=== PATIENT | male | born 1965 | race Caucasian/White ===

== ENCOUNTER → 2019-11-08 | Outpatient (CLI) | payer MEDICARE ==
[2019-11-08 15:16] LABS: African American GFR (CKD) >90 (>60 ml/min/1.73 sqM); Blood Urea Nitrogen 17 mg/dL (9-20); Non-African American GFR(CKD) >90 (>60 ml/min/1.73 sqM)
--- NOTE | 2019-11-08 16:35 | CT ---
EXAMINATION TYPE: CT urogram wo/w con DATE OF EXAM: 11/08/2019 COMPARISON: None HISTORY: Microscopic hematuria. CT DLP: 11,465.5 mGycm CONTRAST: Performed and without and with IV Contrast, patient injected with 100ml mL of Isovue 300. CT Urography was performed with unenhanced followed by enhanced images of the kidneys, ureters and ur inary bladder. Delayed images were obtained. 3d reconstruction was performed at a separate work sta tion. FINDINGS: KIDNEYS/BLADDER: No hydronephrosis. No nephrolithiasis. No distinct renal mass. Urinary bladder gr ossly unremarkable. LUNG BASES-: No visible nodule. No infiltrate. LIVER/GB: Calcified gallstones are noted. No space occupying hepatic lesion. Biliary tree is of jesus l caliber. PANCREAS: No inflammation. No distinct mass. SPLEEN: No splenic enlargement. No lesion seen. ADRENALS: No nodule. No thickening. BOWEL: Normal appendix. Normal bowel caliber. No inflammation. Gastric banding device is in place. GENITAL ORGANS: No gross abnormality. LYMPH NODES: No greater than 1cm abdominal or pelvic lymph nodes are appreciated. AORTA: No significant abnormality. OSSEOUS STRUCTURES: No significant abnormality is seen. OTHER: No significant additional abnormality is seen. IMPRESSION: 1. No distinct abnormality to account for the patient's symptoms of hematuria. Correlate clinically. 2. Cholelithiasis.
== END | disposition home or self-care (01) ==
LOC: RADCTMAIN 14:26
PROVIDERS: ATTEND Urology
DX: K80.20 Calculus of gallbladder without cholecystitis without obstruction (principal); R31.1 Benign essential microscopic hematuria
CPT/HCPCS: 82565; 84520; 74178; 36415; 74400; Q9967

== ENCOUNTER 2019-11-30 10:54 | Day surgery (SDC) | payer MEDICARE ==
--- NOTE | 2019-11-28 15:42 | P.HPIHPCON ---
History of Present Illness H&P Date: 11/30/19 Chief Complaint: right scrotal mass/micro hematuria Mr. Garnett is 54 yo male with hx of 3 cm sinus tract and induration along his scrotum. He is symptomatic from it and indicated he has noticed drainage. I discussed with him the option of observation vs excision. He would like to proceed with excision. I discussed the risk of bleeding, infection and injury to testicle. He also has lesion along his thigh, which he would be excised by Dr Howard. He also has hx of microscopic hematuria. We will do a Cystoscopy at the same time. Consent for Procedure: I have explained the operation/procedure to the patient, including the risks, benefits, side effects, alternative therapies (including not receiving the proposed treatment or service), the likelihood of the patient achieving his/her goals, and potential recuperation problems for the procedure/sedation/analgesia, as well as any blood products, if indicated. I also explained to the patient the risks, benefits and side effects of the alternatives, as well as the risks related to not receiving the proposed procedure, care, treatment, or services. Surgical - Exam - General well developed, well nourished, no distress - Respiratory normal expansion, normal respiratory effort - Psychiatric oriented to time, oriented to person, oriented to place Assessment and Plan Assessment: 54 yo male with hx of right scrotal lesion and microscopic hematuria -OR for excision of right scrotal mass and cystoscopy. This will be a dual case with Dr Howard
[2019-11-29 11:25] VITALS: BMI 48.4
[~2019-11-30 10:54] MED LIST: DEXAMETHASONE SOD PHOSPHATE 10 MG/ML 1 ML VIAL IV ONE; HYDROmorphone 0.5 MG/0.5 ML SYRINGE IVP PRN; LACTATED RINGERS 1,000 ML IV SCH; LIDOCAINE 1% (10MG/ML) FOR IV START INTRADERMA PRN; MIDAZOLAM 2 MG/2 ML VIAL IV PRN; ONDANSETRON 4 MG/2 ML VIAL IVP ONE; ceFAZolin 3 GM in SODIUM CHLORIDE 0.9% 100 ML IVPB ONE
[2019-11-30 11:30] LABS: Glucose,Whole Blood 143 mg/dL (75-99)
[2019-11-30] MEDS ORDERED: fentaNYL (PF) 50 MCG/ML 2 ML AMP IV ONE (11:57)
[2019-11-30] MEDS ORDERED: NEOSTIGMINE 1 MG/ML 10 ML VIAL ONE (11:59)
[2019-11-30] MEDS ORDERED: GLYCOPYRROLATE 0.2 MG/ML 2 ML VIAL ONE (11:59)
[2019-11-30] MEDS ORDERED: ROCURONIUM BROMIDE 10 MG/ML 5 ML VIAL IV ONE (11:59)
[2019-11-30] MEDS ORDERED: PROPOFOL 10 MG/ML 20 ML VIAL IV ONE (11:59)
[2019-11-30] MEDS ORDERED: fentaNYL (PF) 50 MCG/ML 2 ML AMP ONE (11:59)
[2019-11-30] MEDS ORDERED: MIDAZOLAM 2 MG/2 ML VIAL ONE (11:59)
[2019-11-30] MEDS ORDERED: LIDOCAINE 1% INJ 10MG/ML (20 ML MDV) ONE (11:59)
[2019-11-30] MEDS ORDERED: PHENYLEPHRINE-0.9% NACL SYG 1 MG/10 ML SYRINGE ONE (11:59)
[2019-11-30] MEDS ORDERED: SUCCINYLCHOLINE CHLORIDE VIAL 200 MG/10 ML VIAL IV ONE (11:59)
[2019-11-30] MEDS ORDERED: LIDOCAINE 1%-EPI 1:100,000 20 ML VIAL SQ ONE (12:09)
[2019-11-30] MEDS ORDERED: BUPIVACAINE (PF) 0.25% 30 ML VIAL SQ ONE (12:09)
[2019-11-30] MEDS ORDERED: LACTATED RINGERS 1,000 ML IV ONE (12:55)
--- NOTE | 2019-11-30 13:25 | P.OP ---
Date of Procedure: 11/30/19 Preoperative Diagnosis: Abscess/Cyst of right thigh and scrotum Hidradenitis supporativa of right thigh Postoperative Diagnosis: Same Procedure(s) Performed: Excision of hidradenitis suppurativa Anesthesia: MAGALY Surgeon: Frederic Howard Estimated Blood Loss (ml): 10 Pathology: other Condition: stable Disposition: PACU Indications for Procedure: Chronic infection cyst and hidradenitis suppurativa of right thigh Operative Findings: hydradenitis suppurativa Description of Procedure: Patient is brought back to the operative suite placed in the dorsolithotomy position underwent general endotracheal anesthesia per Department of anesthesia timeout performed correct patient correct procedure correct site was verified. Attention was turned to the right thigh will there was a large area of induration and what appeared to be chronic hydradenitis suppurativa. A large elliptical incision was made 12 cm x 4 cm. The entire area of induration was excised down to healthy subcutaneous tissues. Hemostasis was achieved. The wou nd was then closed with 3-0 subdermal Vicryl followed by 2-0 nylon interrupted horizontal mattress sutures. Patient tolerated this well. Dressing was applied. Please see urology note for scrotal cyst excision and cystoscopy. Plan - Discharge Summary Discharge Rx Participant: No New Discharge Prescriptions: New oxyCODONE HCL/ACETAMINOPHEN [Percocet 10-325 mg] 1 tab PO Q4HR PRN 3 Days #18 tab PRN Reason: Pain Sulfamethox-Tmp 800-160Mg [Bactrim DS 800-160 mg] 1 tab PO Q12HR 10 Days #20 tab No Action Multivitamins, Thera [Multivitamin (formulary)] 1 tab PO DAILY metFORMIN HCL [Glucophage] 1,000 mg PO DAILY Metoprolol Succinate (ER) [Toprol Xl] 25 mg PO DAILY Lisinopril [Zestril] 5 mg PO DAILY Atorvastatin [Lipitor] 20 mg PO DAILY Meloxicam [Mobic] 7.5 mg PO DAILY Aspirin [Adult Low Dose Aspirin EC] 81 mg PO DAILY Stool Softner 1 tab PO DAILY Discharge Medication List Aspirin [Adult Low Dose Aspirin EC] 81 mg PO DAILY 11/29/19 [History] Atorvastatin [Lipitor] 20 mg PO DAILY 11/29/19 [History] Lisinopril [Zestril] 5 mg PO DAILY 11/29/19 [History] Meloxicam [Mobic] 7.5 mg PO DAILY 11/29/19 [History] Metoprolol Succinate (ER) [Toprol Xl] 25 mg PO DAILY 11/29/19 [History] Multivitamins, Thera [Multivitamin (formulary)] 1 tab PO DAILY 11/29/19 [History] Stool Softner 1 tab PO DAILY 11/29/19 [History] metFORMIN HCL [Glucophage] 1,000 mg PO DAILY 11/29/19 [History] Sulfamethox-Tmp 800-160Mg [Bactrim DS 800-160 mg] 1 tab PO Q12HR 10 Days #20 tab 11/30/19 [Rx] oxyCODONE HCL/ACETAMINOPHEN [Percocet 10-325 mg] 1 tab PO Q4HR PRN 3 Days #18 tab 11/30/19 [Rx] Follow up Appointment(s)/Referral(s): Frederic Howard DO [Doctor of Osteopathic Medicine] - 2 Weeks Ben Canada MD [STAFF PHYSICIAN] - 2 Weeks Activity/Diet/Wound Care/Special Instructions: Dressing can be removed on thigh tomorrow. Patient may shower and pat dry tomorrow. No bathing or submerging wound underwater. Keep wound clean and dry with dressing changes as needed. Discharge Disposition: HOME SELF-CARE
--- NOTE | 2019-11-30 14:45 | P.OP ---
Date of Procedure: 11/30/19 Preoperative Diagnosis: Right scrotal mass/Microscopic hematuria Postoperative Diagnosis: same Procedure(s) Performed: excision of scrotal mass (3.0 cm), Cystoscopy Implants: none Anesthesia: MAGALY Surgeon: Ben Canada Estimated Blood Loss (ml): 10 Pathology: other (right scrotal mass/tract) Condition: stable Disposition: PACU Indications for Procedure: Mr. Garnett is 54 yo male with hx ocm sinus tract and induration along his scrotum, suspicious for hidradenitis.. He is symptomatic from it and indicated he has noticed drainage. I discussed with him the option of observation vs excision. He would like to proceed with excision. I discussed the risk of bleeding, infection and injury to testicle. He also has lesion along his thigh, which he would be excised by Dr Howard. He also has hx of microscopic hematuria. We will do a Cystoscopy at the same time. Operative Findings: 4 cm scrotal mass and sinus tract along the scrotum on right, suspicious for hidradenitis. Description of Procedure: The patient was brought to the operating room, general anesthesia was induced. He was placed in a dorsal lithotomy position. Dr. howard performed excision of the lesion along the right thigh, please see his op note for his portion of the dictation. There was an indurated area of induration along the right hemiscrotum and a tract that extended to the perineum. the indurated are along the scrotum measured 4 cm. Approximately 4 cm incision was made along the right hemiscrotum along the indurated area. Using blunt dissection the scrotal mass was dissected free from the surrounding tissue caution was used to dissect the tunica vaginalis away from the area of excision. There was no entry into the tunica vaginalis during dissection. Once the scrotal lesion was freed up from all surrounding tissue it was excised. of note the scrotal lesion was very stuck to surrounding tissue and no clear plane was appreciated secondary to inflamation. The scrotal mass measured approximately 4 cm, and it was suspicious for hidradenitis. At this point a hemostat was inserted through the sinus tract along the perineum and extended into the area where the scrotal mass was excised. This sinus tract was excised and removed. Electrocautery was used to achieve hemostasis. Subcutaneous tissue was closed using 3-0 Vicryl. The skin was closed using a combination of 3-0 Vicryl and 4-0 Monocryl in interrupted fashion. 10 mL of local was injected. At this time attention was carried to the cystoscopy. The cystoscope and with 17 Fr sheath was inserted per urethra and advanced into the bladder. cystoscopy was performed which showed no suspicious lesions within the bladder. Of note the patient had a mildly enlarged prostate. The bladder was emptied at the end of the case. The patient tolerated procedure well and was taken to PACU in stable condition
[2019-11-30 14:46] VITALS: TEMP 97.3
[2019-11-30 14:51] LABS: Glucose,Whole Blood 149 mg/dL (75-99)
[2019-11-30 15:05] VITALS: RESP 16
[2019-11-30] MEDS ORDERED: oxyCODONE-APAP 10-325MG 1 EACH TAB PO PRN (15:46)
[2019-11-30 16:15] VITALS: BP 136/80; PULSE 85
== END 2019-11-30 16:30 | disposition home or self-care (01) ==
LOC: OR 10:54
PROVIDERS: ATTEND Student in an Organized Health Care Education/Training Program
DX: L72.0 Epidermal cyst (principal); L90.5 Scar conditions and fibrosis of skin; L08.89 Other specified local infections of the skin and subcutaneous tissue; L73.2 Hidradenitis suppurativa; R31.29 Other microscopic hematuria; N40.0 Benign prostatic hyperplasia without lower urinary tract symptoms; I25.2 Old myocardial infarction; M19.90 Unspecified osteoarthritis, unspecified site; E11.9 Type 2 diabetes mellitus without complications; I10 Essential (primary) hypertension; E78.00 Pure hypercholesterolemia, unspecified; N42.9 Disorder of prostate, unspecified; G47.30 Sleep apnea, unspecified; I25.10 Atherosclerotic heart disease of native coronary artery without angina pectoris; F17.210 Nicotine dependence, cigarettes, uncomplicated; E66.01 Morbid (severe) obesity due to excess calories; Z68.54 Body mass index [BMI] pediatric, 95th percentile for age to less than 120% of the 95th percentile for age; Z86.2 Personal history of diseases of the blood and blood-forming organs and certain disorders involving the immune mechanism; Z85.828 Personal history of other malignant neoplasm of skin; Z98.84 Bariatric surgery status; Z98.890 Other specified postprocedural states; Z79.899 Other long term (current) drug therapy; Z79.84 Long term (current) use of oral hypoglycemic drugs; Z79.52 Long term (current) use of systemic steroids; Z79.891 Long term (current) use of opiate analgesic; Z82.3 Family history of stroke; Z83.3 Family history of diabetes mellitus; Z82.49 Family history of ischemic heart disease and other diseases of the circulatory system; Z80.9 Family history of malignant neoplasm, unspecified
CPT/HCPCS: 88304; 11406; 11424; 52000; J2250; J0330; J1100; J2710; J0690; J2405; J2001; J3010; J2370; J2704

== ENCOUNTER → 2020-03-17 | Outpatient (CLI) | payer MEDICARE ==
[2020-03-17 12:33] LABS: Basophils # (A) 0.1 k/uL (0-0.2); Basophils % (A) 1 %; Eosinophils # (A) 0.2 k/uL (0-0.7); Eosinophils % (A) 2 %; HCT 50.6 % (39.0-53.0); HGB 15.9 gm/dL (13.0-17.5); Lymphocytes # (A) 3.1 k/uL (1.0-4.8); Lymphocytes % (A) 32 %; MCH 31.3 pg (25.0-35.0); MCHC 31.5 g/dL (31.0-37.0); MCV 99.5 fL (80.0-100.0); Mean Platelet Volume 8.3; Monocytes # (A) 0.5 k/uL (0-1.0); Monocytes % (A) 5 %; Neutrophils # (A) 5.6 k/uL (1.3-7.7); Neutrophils % (A) 58 %; Platelet Count 267 k/uL (150-450); RBC 5.08 m/uL (4.30-5.90); RDW 12.9 % (11.5-15.5); WBC 9.6 k/uL (3.8-10.6)
[2020-03-17 12:47] LABS: African American GFR (CKD) >90 (>60 ml/min/1.73 sqM); Anion Gap 5 mmol/L; Blood Urea Nitrogen 19 mg/dL (9-20); Calcium 9.3 mg/dL (8.4-10.2); Carbon Dioxide 31 mmol/L (22-30); Chloride 102 mmol/L (98-107); Glucose 232 mg/dL (74-99); Non-African American GFR(CKD) >90 (>60 ml/min/1.73 sqM); Sodium 138 mmol/L (137-145)
== END | disposition home or self-care (01) ==
LOC: LABPAT 11:19
PROVIDERS: ATTEND Urology
DX: Z01.818 Encounter for other preprocedural examination (principal); E11.9 Type 2 diabetes mellitus without complications; N50.89 Other specified disorders of the male genital organs
CPT/HCPCS: 36415; 80048; 85025

== ENCOUNTER 2020-03-21 11:57 | Day surgery (SDC) | payer MEDICARE ==
[2020-03-19 11:21] VITALS: BMI 48.4
--- NOTE | 2020-03-19 11:32 | P.HPIHPCON ---
History of Present Illness H&P Date: 03/21/20 Chief Complaint: hidradenitis Mr. Garnett is 54 yo male with hx of hidradenitis, he has hx of excision of hidradenitis, . Of note he has a new sinus tract and induration along his scrotum. He is symptomatic from it and indicated he has noticed drainage. I discussed with him the option of observation vs excision. He would like to proceed with excision. I discussed the risk of bleeding, infection and injury to testicle and potential of recurrence Consent for Procedure: I have explained the operation/procedure to the patient, including the risks, benefits, side effects, alternative therapies (including not receiving the proposed treatment or service), the likelihood of the patient achieving his/her goals, and potential recuperation problems for the procedure/sedation/analgesia, as well as any blood products, if indicated. I also explained to the patient the risks, benefits and side effects of the alternatives, as well as the risks related to not receiving the proposed procedure, care, treatment, or services. - Constitutional Constitutional: Denies chills, Denies fever - Cardiovascular Cardiovascular: Denies chest pain, Denies shortness of breath - Respiratory Respiratory: Denies cough, Denies 7 - Gastrointestinal Gastrointestinal: Denies abdominal pain, Denies diarrhea, Denies nausea, Denies vomiting Past Medical History Past Medical History: Cancer, Diabetes Mellitus, GERD/Reflux, Hyperlipidemia, Hypertension, Myocardial Infarction ([place]) Additional Past Medical History / Comment(s): basal cell skin cancer. gallstones. cyst rt thigh,rt scrotal mass Last Myocardial Infarction Date:: 2013 History of Any Multi-Drug Resistant Organisms: MRSA Date of last positivie culture/infection: 2013 MDRO Source:: rt elbow Past Surgical History: Bariatric Surgery, Heart Catheterization, Tonsillectomy Additional Past Surgical History / Comment(s): MOHS procedure, lap band placed and removed, colonoscopy with polyps repair of fissure Past Anesthesia/Blood Transfusion Reactions: No Reported Reaction Smoking Status: Current every day smoker - Past Family History Mother Family Medical History: Cancer Additional Family Medical History / Comment(s): skin cancer Sister(s) Family Medical History: Cancer Additional Family Medical History / Comment(s): "abdominal cancer" Medications and Allergies Home Medications Medication Instructions Recorded Confirmed Type Aspirin [Adult Low Dose Aspirin EC] 81 mg PO DAILY 11/29/19 03/19/20 History Atorvastatin [Lipitor] 40 mg PO DAILY 11/29/19 03/19/20 History Lisinopril [Zestril] 5 mg PO DAILY 11/29/19 03/19/20 History Meloxicam [Mobic] 7.5 mg PO DAILY 11/29/19 03/19/20 History Metoprolol Succinate (ER) [Toprol 25 mg PO DAILY 11/29/19 03/19/20 History Xl] Multivitamins, Thera [Multivitamin 1 tab PO DAILY 11/29/19 03/19/20 History (formulary)] Stool Softner 1 tab PO DAILY 11/29/19 03/19/20 History metFORMIN HCL [Glucophage] 1,000 mg PO DAILY 11/29/19 03/19/20 History oxyCODONE HCL/ACETAMINOPHEN 1 tab PO Q4HR PRN 3 Days #18 tab 11/30/19 03/19/20 Rx [Percocet 10-325 mg] Bumetanide [Bumex] 1 mg PO DAILY 03/19/20 03/19/20 History Omeprazole [PriLOSEC] 20 mg PO [id number]-[id number] 03/19/20 03/19/20 History Potassium Chloride [K-Tab ER] 10 meq PO DAILY 03/19/20 03/19/20 History Allergies Allergy/AdvReac Type Severity Reaction Status Date / Time No Known Allergies Allergy Verified 03/19/20 11:10 Surgical - Exam - General well developed, well nourished, no distress - Respiratory normal expansion, normal respiratory effort - Abdomen Abdomen: soft, non tender Assessment and Plan Assessment: 54 yo male wit hx of hidradenitis -OR excision of hidradenitis,
[~2020-03-21 11:57] MED LIST changes: +KETOROLAC 30 MG/ML 1 ML VIAL IVP SCH; -MIDAZOLAM 2 MG/2 ML VIAL IV PRN; +ONDANSETRON 4 MG/2 ML VIAL IVP PRN
[2020-03-21] MEDS ORDERED: ONDANSETRON 4 MG/2 ML VIAL ONE (12:45)
[2020-03-21] MEDS ORDERED: fentaNYL (PF) 50 MCG/ML 2 ML AMP IVP ONE (13:00)
[2020-03-21 13:03] LABS: Glucose,Whole Blood 141 mg/dL (75-99)
[2020-03-21] MEDS ORDERED: MIDAZOLAM 2 MG/2 ML VIAL ONE (14:11)
[2020-03-21] MEDS ORDERED: LIDOCAINE 1% INJ 10MG/ML (20 ML MDV) ONE (14:11)
[2020-03-21] MEDS ORDERED: METOPROLOL TARTRATE 5 MG/5 ML VIAL IVP ONE (14:11)
[2020-03-21] MEDS ORDERED: PROPOFOL 10 MG/ML 20 ML VIAL IV ONE (14:11)
[2020-03-21] MEDS ORDERED: SUCCINYLCHOLINE CHLORIDE VIAL 200 MG/10 ML VIAL IV ONE (14:11)
[2020-03-21] MEDS ORDERED: fentaNYL (PF) 50 MCG/ML 2 ML AMP ONE (14:11)
[2020-03-21] MEDS ORDERED: BUPIVACAINE (PF) 0.5% 30 ML VIAL SQ ONE ×2 (15:19)
--- NOTE | 2020-03-21 15:25 | P.OP ---
Date of Procedure: 03/21/20 Preoperative Diagnosis: Hidraadenitis Postoperative Diagnosis: same Procedure(s) Performed: Excision of hidradenitis, approximately 8 cm Implants: None Anesthesia: MAGALY Surgeon: Ben Canada Estimated Blood Loss (ml): 20 Pathology: other (Hidradenitis) Condition: stable Disposition: PACU Indications for Procedure: Mr. Garnett is 54 yo male with hx of hidradenitis, he has hx of excision of hidradenitis, . Of note he has a new sinus tract and induration along his scrotum. He is symptomatic from it and indicated he has noticed drainage. I discussed with him the option of observation vs excision. He would like to proceed with excision. I discussed the risk of bleeding, infection and injury to testicle and potential of recurrence Operative Findings: Indurated hidradenitis area along the right hemiscrotum Description of Procedure: The patient was brought to the operating room, general anesthesia was induced. He was placed in a dorsal lithotomy position. There was an indurated area of induration along the right hemiscrotum . the indurated are along the scrotum measured 8 cm. an elliptical incision was made around the indurated area. Subcutaneous tissue was dissected using electrocautery. At this point the indurated area was dissected off posteriorly off subcutaneous tissue and was excised and sent to pathology. The subcutaneous tissue was closed in 2 layers using 3-0 Vicryl. The skin was closed using 2-0 Vicryl in horizontal mattress. Approximately 20 mL of local was infiltrated. Dermabond was applied to the wound The patient tolerated procedure well and was taken to PACU in stable condition
[2020-03-21 15:41] VITALS: TEMP 97.3
[2020-03-21 15:47] LABS: Glucose,Whole Blood 145 mg/dL (75-99)
[2020-03-21 16:09] VITALS: RESP 18
[2020-03-21 16:27] VITALS: BP 127/67; PULSE 78
== END 2020-03-21 16:44 | disposition home or self-care (01) ==
LOC: OR 11:57
PROVIDERS: ATTEND Urology
DX: L73.2 Hidradenitis suppurativa (principal); I25.2 Old myocardial infarction; I10 Essential (primary) hypertension; E78.5 Hyperlipidemia, unspecified; E11.9 Type 2 diabetes mellitus without complications; K21.9 Gastro-esophageal reflux disease without esophagitis; F17.200 Nicotine dependence, unspecified, uncomplicated; Z88.5 Allergy status to narcotic agent; Z79.1 Long term (current) use of non-steroidal anti-inflammatories (NSAID); Z79.4 Long term (current) use of insulin; Z79.82 Long term (current) use of aspirin; Z79.899 Other long term (current) drug therapy; Z85.828 Personal history of other malignant neoplasm of skin; Z87.19 Personal history of other diseases of the digestive system; Z86.14 Personal history of Methicillin resistant Staphylococcus aureus infection; Z98.84 Bariatric surgery status; Z90.89 Acquired absence of other organs; Z80.8 Family history of malignant neoplasm of other organs or systems; Z80.0 Family history of malignant neoplasm of digestive organs
CPT/HCPCS: 11470; J2250; J0330; J1100; J0690; J2405; J2001; J3010; J2704